=== PATIENT | female | born 1935 ===

== ENCOUNTER 2017-02-01 11:57 | Day surgery (SDC) | payer MEDICARE, MEDICAID ==
[2017-01-26 14:27] VITALS: BMI 22.6
[2017-02-01 12:20] LABS: ADD MANUAL DIFF? NO
[2017-02-01 12:33] LABS: INR 0.99 (0.93-1.08); PARTIAL THROMBOPLASTIN TIME 25.7 Seconds (23.7-30.8)
[2017-02-01 12:34] LABS: BASO # 0.01 K/mm3 (0.0-2.0); BASO % 0.2 % (0.0-3.0); EOS # 0.1 (0.0-0.7); EOS % 1.3 % (1.5-5.0); GRAN % 57.1 % (50.0-68.0); HEMATOCRIT 36.9 % (36.0-48.0); LYMPH % 33.1 % (22.0-35.0); MEAN CELL VOLUME 85.8 fl (80.0-105.0); MEAN CORPUSCULAR HEMOGLOBIN 27.9 pg (25.0-35.0); MEAN CORPUSCULAR HGB CONC 32.5 g/dl (31.0-37.0); MEAN PLATELET VOLUME 11.3 fl (7.0-11.0); MONO # 0.5 (0.1-0.6); MONO % 8.3 % (1.0-6.0); PLATELET COUNT 192 10^3/uL (120.0-450.0); RED CELL DISTRIBUTION WIDTH 14.8 % (11.5-14.5); WHITE BLOOD COUNT 6.1 10^3/ul (4.5-11.0)
[2017-02-01 12:38] LABS: BLOOD UREA NITROGEN 15 mg/dL (7-21); CALCIUM 9.6 mg/dL (8.4-10.5); CARBON DIOXIDE 29 mmol/L (21-33); CHLORIDE 101 mmol/L (95-110); GFR AFRICAN-AMERICAN > 60; GLUCOSE,RANDOM 100 mg/dL (70-110); POTASSIUM 4.4 mmol/L (3.6-5.0); SODIUM 140 mmol/L (132-148)
--- NOTE | 2017-02-01 13:34 | CP.SDSHP ---
Same Day Surgery H & P - History Proposed Procedure: Cat scan guided chest biopsy Pre-Op Diagnosis: Breast Ca - Previous Medical/Surgical History Cardiac: ASHD/CAD Endocrine/Metabolic: Diabetes Misc: Other (Pt has a lump on the back of her R upper chest,hyperlipidemia, arthritis ,GERD,History of L Breast Ca,history of 2 small "stomach ulcers many years ago.) Pain: 0. No Pain Previous Surgical History: L mastectomy (1998),lymph nodes were involved. Quadruple Bypass (2003) - Allergies Allergies: Allergies No Known Allergies Allergy (Verified 01/29/17 10:00) - Physical Exam General Appearance: Well nourished female Vital Signs: Vital Signs 02/01/17 12:15 Temperature 97.6 F Pulse Rate 57 L Respiratory 20 Rate Blood Pressure 125/65 O2 Sat by Pulse 95 Oximetry Mental Status: Alert & Oriented x3 Neuro: WNL Heart: Other (old surgical scar noted in the sternal region) Lungs: WNL - {Optional Preform as Required} Breast: Other (S/P L mastectomy) Abdomen: WNL Other Pertinent Findings: Bony prominence noted in both scapular regions R > L side - Impression Impression: History of Breast Ca. Mass posterior chest - Date & Time Date: 02/01/17 Time: 13:33 Short Stay Discharge - Short Stay Discharge Admitting Diagnosis/Reason for Visit: BREAST CA Disposition: HOME/ ROUTINE Referrals: Russel Beard MD [Primary Care Provider] -
[2017-02-01] MEDS ORDERED: Midazolam 2 MG/2 ML VIAL ONE (14:33)
[2017-02-01] MEDS ORDERED: Oxycodone/Acetaminophen 5/325 mg Tab PO PRN (14:54)
[2017-02-01] MEDS ORDERED: Sodium Chloride 0.45% 1,000 ML IV SCH (15:00)
[2017-02-01 16:19] VITALS: BP 130/65; PULSE 54; RESP 18; TEMP 97.8; O2SAT 95
--- NOTE | 2017-02-06 23:06 | CT ---
PROCEDURE: CT guided right chest biopsy. HISTORY: Previous breast CA. Right chest wall mass with increased activity on PET scan. Evaluate for recurrence. PHYSICIAN(S): Handy Smith MD. TECHNIQUE: The relative risks and indications of the procedure were explained to the patient and her son and consent obtained. The patient was placed supine on the CT scanner and preliminary images through the upper chest obtained. Conscious sedation and monitoring were provided throughout the procedure by a nurse. There is a 1.6 x 5.3 cm opacity between the inferior aspect the right scapula and chest wall. This corresponds to the area of increased activity on PET scan.. A right lateral approach was selected and the area prepped and draped in the usual sterile fashion. 1% Xylocaine was used to anesthetize the skin and soft tissues. A 17-gauge guiding needle was advanced into the 0.6 x 5.3 cm chest wall mass. Its position was confirmed with CT. Using coaxial technique, multiple core biopsies were obtained. The postprocedure images show no evidence of significant hemorrhage. IMPRESSION: 1. CT-guided right chest biopsy as described above.
== END 2017-02-01 17:00 | disposition home or self-care (01) ==
LOC: SDS 11:57
PROVIDERS: ATTEND Radiology Vascular & Interventional Radiology
DX: D21.3 Benign neoplasm of connective and other soft tissue of thorax (principal); K21.9 Gastro-esophageal reflux disease without esophagitis; E78.5 Hyperlipidemia, unspecified; I25.10 Atherosclerotic heart disease of native coronary artery without angina pectoris; E11.9 Type 2 diabetes mellitus without complications; Z85.3 Personal history of malignant neoplasm of breast; Z90.12 Acquired absence of left breast and nipple; Z95.1 Presence of aortocoronary bypass graft; Z79.84 Long term (current) use of oral hypoglycemic drugs
CPT/HCPCS: 32405; 36415; 77012; 80048; 85025; 85610; 85730; 88305; J2250; J2405; J3010; J7030